=== PATIENT | male | born 1985 | race Two or more races ===

== ENCOUNTER 2016-07-12 11:57 | Emergency (ER) | payer MEDICAID ==
[~2016-07-12] VITALS: Ht 162.6 cm; Wt 63.5 kg
[2016-07-12 12:01] VITALS: BP 115/67
[2016-07-12] MEDS ORDERED: diphenhydrAMINE HCL ELIX 25 MG/10 ML UDC ONE (12:25)
[2016-07-12] MEDS ORDERED: predniSONE 20 MG TABLET ONE (12:25)
[2016-07-12] MEDS ORDERED: DIPHENHYDRAMINE HCL 12.5 MG/5 ML UDC PO ONE (12:30)
[2016-07-12] MEDS ORDERED: predniSONE 20 MG TABLET PO ONE (12:30)
== END 2016-07-12 12:46 | disposition home or self-care (01) ==
LOC: ER 11:59
DX: T78.40XA Allergy, unspecified, initial encounter (principal); Z88.8 Allergy status to other drugs, medicaments and biological substances; Y92.89 Other specified places as the place of occurrence of the external cause
CPT/HCPCS: 99283; A4606; J7512; Q0163 ×2; Z7610

== ENCOUNTER 2016-08-20 08:38 | Emergency (ER) | payer MEDICAID ==
[~2016-08-20] VITALS: Ht 167.6 cm; Wt 73.5 kg
[2016-08-20 09:12] VITALS: BP 140/81
[2016-08-20 09:24] LABS: APPEARANCE,URINE CLEAR (CLEAR); BILIRUBIN,URINE NEGATIVE (NEGATIVE); BLOOD, URINE NEGATIVE Ery/uL (NEGATIVE); COLOR,URINE YELLOW (YELLOW); KETONES,URINE NEGATIVE (NEGATIVE); LEUKOCYTE ESTERASE ,URINE NEGATIVE (NEGATIVE); NITRITE, URINE NEGATIVE (NEGATIVE); PH,URINE 8.5 (5.0-8.0); PROTEIN,URINE NEGATIVE (NEGATIVE); UGLUCOSE NEGATIVE (NEGATIVE); UROBILINOGEN,URINE 0.2 EU/dL (0.2)
[2016-08-20] MEDS ORDERED: ONDANSETRON 4 MG TAB.RAPDIS ONE (11:08)
[2016-08-20] MEDS: ONDANSETRON 4 MG TAB.RAPDIS SL ONE (11:12)
--- NOTE | 2016-08-20 12:52 | NUR ---
PATIENT NOT IN HIS ROOM, DR IZQUIERDO AWARE
== END 2016-08-20 12:54 | disposition left against medical advice (07) ==
LOC: ER 08:39
DX: R10.13 Epigastric pain (principal); Z88.8 Allergy status to other drugs, medicaments and biological substances
CPT/HCPCS: 81000-TC; A4606; Q0162; Z7610